=== PATIENT | male | born 1950 | race Caucasian/White ===

== ENCOUNTER 2021-02-05 22:44 | Emergency (ER) | payer MEDICARE ==
[~2021-02-05] VITALS: Ht 170.2 cm; Wt 98.7 kg
[~2021-02-05 22:44] MED LIST: ENAL10TA9 PO; METF10002 PO; METF500T17 PO; OXYC1TAB18 PO
[2021-02-05 23:22] LABS: MICROSCOPIC AUTO
[2021-02-05 23:26] LABS: BASOPHILS % (AUTO) 1 % (0-1); EOSINOPHILS % (AUTO) 5 % (1-7); LYMPHOCYTES % (AUTO) 32 % (22-44); MEAN CORPUSCULAR HEMOGLOBIN 32.5 pg (27.5-34.5); MEAN CORPUSCULAR HGB CONC 33.2 g/dL (33.2-36.2); MEAN PLATELET VOLUME 7.5 fL (7.4-10.4); MONOCYTES % (AUTO) 10 % (2-9); NEUTROPHILS % (AUTO) 52 % (42-75); PLATELET COUNT 280 x10^3/uL (130-400); RED BLOOD COUNT 4.42 x10^6/uL (4.38-5.82); RED CELL DISTRIBUTION WIDTH 13.1 % (9.4-14.8)
[2021-02-05 23:29] LABS: ALANINE AMINOTRANSFERASE 24 U/L (12-78); ANION GAP 5 mmol/L (5-15); CALCIUM 9.7 mg/dL (8.5-10.1); CHLORIDE 105 mmol/L (98-107); CREATININE 1.44 mg/dL (0.7-1.3)
[2021-02-05 23:31] LABS: ALKALINE PHOSPHATASE 135 U/L (45-117); BILIRUBIN,TOTAL 0.4 mg/dL (0.2-1.0); TOTAL PROTEIN 7.9 g/dL (6.4-8.2)
[2021-02-06 00:58] VITALS: BP 138/78
== END 2021-02-06 01:27 | disposition home or self-care (01) ==
LOC: ED 23:37
DX: N18.9 Chronic kidney disease, unspecified (principal); R31.0 Gross hematuria
CPT/HCPCS: 36415; 80053; 81001; 85025; 87086; 99283

== ENCOUNTER 2021-02-08 00:14 | Emergency (ER) | payer MEDICARE ==
[~2021-02-08] VITALS: Ht 170.2 cm; Wt 97.9 kg
[2021-02-08 00:23] VITALS: BP 150/79
[2021-02-08 02:12] LABS: BASOPHILS % (AUTO) 1 % (0-1); EOSINOPHILS % (AUTO) 4 % (1-7); LYMPHOCYTES % (AUTO) 28 % (22-44); MEAN CORPUSCULAR HEMOGLOBIN 33.3 pg (27.5-34.5); MEAN CORPUSCULAR HGB CONC 33.9 g/dL (33.2-36.2); MEAN PLATELET VOLUME 7.8 fL (7.4-10.4); MONOCYTES % (AUTO) 10 % (2-9); NEUTROPHILS % (AUTO) 57 % (42-75); PLATELET COUNT 280 x10^3/uL (130-400); RED BLOOD COUNT 4.32 x10^6/uL (4.38-5.82)
[2021-02-08 02:14] LABS: MICROSCOPIC INDICATED
[2021-02-08 02:45] LABS: ANION GAP 6 mmol/L (5-15); CALCIUM 9.7 mg/dL (8.5-10.1); CHLORIDE 106 mmol/L (98-107); CREATININE 1.33 mg/dL (0.7-1.3)
--- NOTE | 2021-02-08 03:23 | NUR ---
Patient given discharge instructions and they have confirmed that they understand the instructions. Patient ambulatory with steady gait. NAD, all questions answered appropriately, denies additional needs at this time. No personal belongings left in room after discharge.
== END 2021-02-08 03:39 | disposition home or self-care (01) ==
LOC: ED 03:31
DX: R31.0 Gross hematuria (principal)
CPT/HCPCS: 36415; 80048; 81001; 85025; 87086; 99283